=== PATIENT | female | born 1935 | race Caucasian/White ===

== ENCOUNTER 2021-10-06 10:44 | Inpatient (IN) | payer MEDICARE, BC ==
[~2021-10-06] VITALS: Ht 154.9 cm; Wt 78.1 kg
[2021-10-06 11:17] LABS: BASO # 0.1 K/mm3 (0.0-0.2); BASO % 0.9 % (0.0-2.0); EOS # 0.2 K/mm3 (0.0-0.7); EOS % 1.9 % (0.0-4.0); GRAN # 5.6 K/mm3 (1.4-6.5); GRAN % 47.8 % (42.2-75.2); HEMATOCRIT 41.5 % (37.0-47.0); HEMOGLOBIN 14.1 g/dl (12.5-16.0); LYMPH # 4.8 K/mm3 (1.2-3.4); LYMPH % 40.7 % (20.0-51.0); MEAN CELL VOLUME 89 fl (80.0-100.0); MEAN CORPUSCULAR HEMOGLOBIN 30 pg (27-31); MEAN CORPUSCULAR HGB CONC 34 g/dl (33.0-37.0); MEAN PLATELET VOLUME 11.1 fl (7.4-10.4); MONO % 8.5 % (1.7-9.3); PLATELET COUNT 204 K/mm3 (130-400); RED BLOOD COUNT 4.67 M/mm3 (4.10-5.30); REDCELL DISTRIBUTION WIDTH-CV 12.4 % (11.5-14.5)
[2021-10-06 11:31] LABS: ALBUMIN 3.7 gm/dL (3.4-4.8); BILIRUBIN,TOTAL 0.8 mg/dL (0.2-1.2); CALCIUM 9.8 mg/dL (8.4-10.2); CREATININE, serum 1.32 mg/dL (0.57-1.11); POTASSIUM 4.3 mmol/L (3.5-4.5); TOTAL PROTEIN 7.5 gm/dL (6.2-8.1)
[2021-10-06 11:51] LABS: TROPONIN-I 0.025 ng/mL (0.00-0.033); TSH w REFLEX 2.432 uIU/mL (0.350-4.940)
[2021-10-06 12:49] LABS: COLLECTION METHOD CLEAN CATCH
[2021-10-06 12:55] LABS: MUCOUS Present (NOT PRESENT); PH 6 (5-8); SQUAMOUS EPITHELIAL 0-2 /hpf (0-10); URINE APPEARANCE Clear (CLEAR/HAZY); URINE BACTERIA None Seen /hpf (NONE SEEN); URINE BILIRUBIN Negative (NEGATIVE); URINE BLOOD Negative (NEGATIVE); URINE COLOR Yellow (YELLOW); URINE GLUCOSE Negative (NEGATIVE); URINE KETONE Negative (NEGATIVE); URINE LEUKOCYTE ESTERASE Negative (NEGATIVE); URINE NITRATE Negative (NEGATIVE); URINE PROTEIN(semi-quant) Negative (NEGATIVE); URINE RBC 0-2 /hpf (0-2); URINE UROBILINOGEN Negative (NEGATIVE)
[2021-10-06] MEDS ORDERED: PRINZIDE 12.5 M1 TA1 PO (13:22)
[2021-10-06] MEDS ORDERED: [UNRECOGNIZED DRUG - SUPPLY] (13:22)
[2021-10-06] MEDS ORDERED: ZOCOR 40MG40 MG PO (13:22)
[2021-10-06] MEDS ORDERED: TOPROL XL100 MG PO (13:23)
[2021-10-06] MEDS ORDERED: NOVOLIN 70/30 710 ML SQ (13:23)
[2021-10-06] MEDS ORDERED: OMEGA-3 1000 MG1 CAP PO (13:44)
[2021-10-06] MEDS ORDERED: MULTI VITAMINS1 TAB PO (13:44)
--- NOTE | 2021-10-07 00:16 | NUR ---
Patient arrived medical floor room 312 via hospital bed from ER at 23:10 pm. Patient able to get up from bed and move to bed with x1 assit. Patient alert and oriented to self only. Patient not oriented to time, month, year, place and situation. Noticed left sided facial droop and slurred speech. Patient follow some commands. Bilateral hands and legs equal strengh. NS currently running at 75ml/hr. Patient currently NPO until ev. Patient denies any pain or discomfort. Breathing even and unlabored on room air. No apparent distress noted. Oriented patient to the room. Called patient's daughter Rosi at midnight and updated on patient's condition. Unable to verify med req at this time due to patient's daughter does not remember medications patient currently taking. Per patient's daughter, she gave medication lists to ER staff earlier. Patient's daughter also reports that patient blood sugar tends to drop dramatically and will need monitor closely. Updated CRISTY Mehta about family concerns. Q4hr glucose monitor in place and hypoglycemic protocol entered in DEC by CRISTY Mehta. Call light in reach. Bed alarms on. Will closely monitor.
[2021-10-07 00:52] VITALS: BP 155/98; PULSE 67; TEMP 97.6
--- NOTE | 2021-10-07 01:02 | NUR ---
Patient's BS 311 at 00:51 am. Updated CRISTY Mehta. Per CRISTY Mehta, it's ok to hold insulin at this time since patient NPO and also family expressed concerns about patient's BS will drop quickly. Will closely monitor.
[2021-10-07 04:52] VITALS: BP 157/64; PULSE 73; TEMP 97.5
--- NOTE | 2021-10-07 05:33 | NUR ---
Patient got up to use bed side commode x2 over the night. Patient awake early around 3 am. Patient moving around in bed and trying to get out of bed. Patient calling out and saying, "please, please, help me, I have go see my parents.". Re-oriented patient frequently. Bed alarms on. Fall precaution maintained.
[2021-10-07 06:41] LABS: BASO # 0.1 K/mm3 (0.0-0.2); EOS # 0.1 K/mm3 (0.0-0.7); EOS % 1.1 % (0.0-4.0); GRAN # 6.9 K/mm3 (1.4-6.5); GRAN % 55.6 % (42.2-75.2); HEMATOCRIT 39.8 % (37.0-47.0); HEMOGLOBIN 13.2 g/dl (12.5-16.0); LYMPH # 4.1 K/mm3 (1.2-3.4); LYMPH % 32.9 % (20.0-51.0); MEAN CELL VOLUME 90 fl (80.0-100.0); MEAN CORPUSCULAR HEMOGLOBIN 30 pg (27-31); MEAN CORPUSCULAR HGB CONC 33 g/dl (33.0-37.0); MEAN PLATELET VOLUME 12.3 fl (7.4-10.4); MONO # 1.1 K/mm3 (0.1-0.6); MONO % 9.2 % (1.7-9.3); PLATELET COUNT 210 K/mm3 (130-400); RED BLOOD COUNT 4.44 M/mm3 (4.10-5.30); REDCELL DISTRIBUTION WIDTH-CV 12.5 % (11.5-14.5)
[2021-10-07 06:54] LABS: ALBUMIN 3.6 gm/dL (3.4-4.8); BILIRUBIN,TOTAL 0.9 mg/dL (0.2-1.2); CALCIUM 9.6 mg/dL (8.4-10.2); CHOLESTEROL RISK RATIO 4.2; CREATININE, serum 1.4 mg/dL (0.57-1.11); POTASSIUM 4.2 mmol/L (3.5-4.5); TOTAL PROTEIN 7.1 gm/dL (6.2-8.1)
[2021-10-07 08:00] VITALS: BP 154/69; BP 160/121; PULSE 89; TEMP 97.8
--- NOTE | 2021-10-07 08:30 | NUR ---
Pt assessment complete. Pt is laying in bed upon entry, she is alert but unable to answer orientation questions beyond self orientation. Pt continues to say her parents are coming to pick her up, she does not answer other questions but will follow commands. She was able to get up with one assist to the cammode, difficult to follow instructions. Awaiting ST to evaluate patient prior to oral intake. Bed alarm in place.
--- NOTE | 2021-10-07 09:56 | NUR ---
The patient has a past medical history of dementia and was sleeping this morning. RACHEL contacted the patient's , Miguel Angel (ph#[phone]), to discuss discharge plan. The patient lives with her [place] of [place]. Miguel Angel reports that the patient was independent with ADLs before being hospitalized and that she has a walker. The patient's PCP is Dr. Tyson Olmos and she receives her medications through the mail from [facility]. The patient does not have a DPOA-HC in EMR, but Miguel Angel reports that the patient does have one completed and that she designated him. He reports that the forms are at home. Their daughter, Rosi Mosquera (ph#[phone]), lives in [place]. The patient was admitted for concern of a stroke. RACHEL discussed the option of post-acute rehab upon discharge. Miguel Angel reports that he would be hopeful they could do home health, if able. PT/OT/ST have been ordered. Awaiting screens. *Discharge plan: home health vs SNF. Will await therapy's recs*
[2021-10-07 11:53] VITALS: BP 155/75; PULSE 86; TEMP 98.1
--- NOTE | 2021-10-07 14:30 | NUR ---
PT notified RACHEL that they would recommend post-acute rehab for the patient upon discharge. The patient's , Miguel Angel, arrived to the hospital. SW met with Miguel Angel to update him on the above. Miguel Angel reports that him and their family have discussed options and they do not want the patient going to a SNF, due to the rise in COVID. Miguel Angel reports that between him and their children, they can take care of the patient and that they would hope to get home health. SW informed him how we can get home health set up, but insurance only pays for prison/therapy in the home 2-3 times a week at an hour at a time. SW informed him that it they are looking for companions to assist, this would be private pay. Miguel Angel verbalized understanding. Miguel Angel reports that he will get back to his family with this information and see what they want to do. He reports that he will let RACHEL know tomorrow. SW provided Miguel Angel with this RACHEL's phone number and Medicare.gov's list of SNF's and home health agencies for the [facility]. SW to continue to follow. *Discharge plan: home with family support and home health vs SNF*
[2021-10-07 16:14] LABS: CREATININE, serum 1.26 mg/dL (0.57-1.11)
[2021-10-07 16:30] LABS: FRACTIONAL EXCRETION OF NA+ 0.63 %
[2021-10-07 16:54] VITALS: BP 142/87; PULSE 78; TEMP 98.4
--- NOTE | 2021-10-07 18:22 | NUR ---
Pt confused through the day, answers a few questions appropriately. Hard for patient to follow directions. Continues to have the L sided facial droop, hand safe deposit attendant and BLE equal. IVF infusing. Pt tolerated pureed diet and nectar thick liquids without issues. Fall precautions in place.
--- NOTE | 2021-10-07 19:29 | NUR ---
AT SHIFT REPORT THE PATIENT WAS RESTING IN BED COMFORTABLY. AT 1910, THIS RN WENT TO CHECK ON THE PATIENT, AND THE PATIENT HAD PULLED HER IV OUT, THE COBAN ON THE ARM ACTED A TOURNIQUETTE. THE PATIENT LOST A SIGNIFICANT AMOUNT OF BLOOD. THE BLOOD WAS POOLED IN THE BED, AND POOLED ON THE FLOOR. THE GOWN WAS SATURATED AND THE BEDDING WAS ALSO SATURATED. CONTACTED MELANY MANZO TO NOTIFY HER OF THE BLOOD LOSS AND POTENTIAL H&H DROP THAT COULD RESULT FROM THE BLOOD LOSS. THE PATIENT WAS NOT NEEDING ANYTHING ELSE AT THIS TIME.
[2021-10-07 20:53] VITALS: BP 149/74; PULSE 105; TEMP 99.6
[2021-10-08 00:57] VITALS: BP 134/98; PULSE 108; TEMP 98.8
[2021-10-08 07:10] LABS: CALCIUM 9.6 mg/dL (8.4-10.2); CREATININE, serum 1.24 mg/dL (0.57-1.11); HEMOGLOBIN 12.1 g/dl (12.5-16.0); MEAN CELL VOLUME 90 fl (80.0-100.0); MEAN CORPUSCULAR HEMOGLOBIN 30 pg (27-31); MEAN CORPUSCULAR HGB CONC 33 g/dl (33.0-37.0); MEAN PLATELET VOLUME 11.8 fl (7.4-10.4); PLATELET COUNT 177 K/mm3 (130-400); POTASSIUM 4.2 mmol/L (3.5-4.5); RED BLOOD COUNT 4.04 M/mm3 (4.10-5.30); REDCELL DISTRIBUTION WIDTH-CV 12.5 % (11.5-14.5)
[2021-10-08 07:13] LABS: HEMATOCRIT 36.2 % (37.0-47.0)
[2021-10-08 07:27] VITALS: BP 150/74; PULSE 120; TEMP 99.2
[2021-10-08 07:43] LABS: BAND 3 % (0-10); LYMPHOCYTE 27 % (20.0-51.0); NEUTROPHILS 66 % (42.0-75.2); PLATELET ESTIMATE NORMAL (NORMAL)
--- NOTE | 2021-10-08 10:07 | NUR ---
Patient confused and very restless in bed. Contantly moving, pulling at her gown, and attempting to remove her kavita that was placed to keep her from pulling out her new IV. 22G was started in the right forearm by Maxx from landscape laborer. Patient is not responding to questions appropriately. This RN and PCT did a complete bed change on the patient.
[2021-10-08 11:47] VITALS: BP 148/66; PULSE 85; TEMP 99
[2021-10-08] MEDS ORDERED: LIPITOR20 MG PO ×2 (14:55)
[2021-10-08] MEDS ORDERED: ASPIRIN 81M81 MG/TA2 PO ×2 (14:56)
--- NOTE | 2021-10-08 15:02 | NUR ---
Patient remains confused, but this is apparently her baseline. This RN and the PCT got the patient up to the bedside commode, she was unsteady and required a heavy 2x assist.
[2021-10-08 15:25] VITALS: BP 153/78; PULSE 98; TEMP 100.3
--- NOTE | 2021-10-08 15:50 | NUR ---
RACHEL received a voicemail from the patient's daughter, Rosi Mosquera. RACHEL returned Rosi's phone call. Rosi had some questions about the information this RACEHL provided to her father yesterday. Rosi also reports that after more consideration, the patient's and the rest of the family have decided to pursue with the patient returning home with her . Rosi reports that they are concerned with the patient being exposed to COVID while at a facility. RACHEL informed Rosi how the clinical team and therapy are recommending post-acute rehab and that she is not safe to return home. RACHEL read PT's eval of the patient and how the patient was needing maximum assistance to get up, has unsteady gait and weakness, and was needing mod-max cues for directions. Rosi verbalized understanding. Rosi inquired that if they take her home with home health and realize they cannot take care of her, would SNF still be covered by insurance. RACHEL informed Rosi how they would have a 30 day window with Medicare. RACHEL informed them that Medicare only pays for PT/OT/ST/SN in the home and they only come out 2-3 times a week, at an hour at a time. RACHEL informed her that any burial needs salesperson services would be private pay. Rosi verbalized understanding. Rosi reports that they would prefer to take her home with home health. She asked that RACHEL email her a list of the home health agencies and a list of private duty caregivers. RACHEL emailed her those lists. RACHEL updated the clinical team. RACHEL then attended clinical rounds. The patient's was at bedside. Rosi was on speaker phone. The hospitalist informed the and Rosi that the patient will discharge tomorrow with home health. RACHEL then contacted Rosi to follow up on home health preference. Rosi reports that her dad, the patient's (Miguel Angel) has decided to pursue SNF now. Rosi reports that they prefer 1) [facility] 2) [facility]. RACHEL contacted and faxed a referral to both facilities. Awaiting screens.
[2021-10-08 21:44] VITALS: BP 157/89; PULSE 79; TEMP 99
[2021-10-08 23:46] VITALS: BP 153/93; PULSE 100; TEMP 99.2
--- NOTE | 2021-10-09 00:04 | NUR ---
Patient assessed around 1950. Alert, oriented to self. Denies pain and discomfort, and no s/sx of pain or discomfort noted at this time. Peripheral IV to right forearm with fluids running per orders. continues on IV ABX as well. Voices no questions, needs, or concerns at this time. In bed with call light within reach.
[2021-10-09 03:08] VITALS: BP 174/81; PULSE 90; TEMP 98.3
--- NOTE | 2021-10-09 05:41 | NUR ---
Patient has been resting in bed with call light within reach. No aggitation noted this shift. Continues on IV fluids per orders. Bed alarm on.
[2021-10-09 06:43] LABS: HEMOGLOBIN 11.8 g/dl (12.5-16.0); MEAN CELL VOLUME 91 fl (80.0-100.0); MEAN CORPUSCULAR HEMOGLOBIN 30 pg (27-31); MEAN CORPUSCULAR HGB CONC 33 g/dl (33.0-37.0); MEAN PLATELET VOLUME 12.1 fl (7.4-10.4); PLATELET COUNT 175 K/mm3 (130-400); REDCELL DISTRIBUTION WIDTH-CV 12.9 % (11.5-14.5)
[2021-10-09 06:46] LABS: HEMATOCRIT 35.4 % (37.0-47.0)
[2021-10-09 07:00] LABS: CALCIUM 9.6 mg/dL (8.4-10.2); CREATININE, serum 1.13 mg/dL (0.57-1.11); POTASSIUM 3.6 mmol/L (3.5-4.5)
[2021-10-09 07:19] VITALS: BP 136/80; PULSE 95; TEMP 97.7
--- NOTE | 2021-10-09 07:54 | NUR ---
PT ASSESSED. NO COMPLAINTS OF PAIN OR DYSPNEA. DAUGHTER CALLED FOR AN UPDATE AND QUESTIONS ANSWERED. NO OTHER CONCERNS AT THIS TIME CALL LIGHT WITHIN REACH
[2021-10-09 07:55] LABS: BAND 7 % (0-10); LYMPHOCYTE 12 % (20.0-51.0); NEUTROPHILS 74 % (42.0-75.2); PLATELET ESTIMATE NORMAL (NORMAL)
[2021-10-09 11:45] VITALS: BP 164/92; PULSE 91; TEMP 97.4
[2021-10-09 13:20] LABS: CALCIUM 9.3 mg/dL (8.4-10.2); CREATININE, serum 1.34 mg/dL (0.57-1.11); POTASSIUM 3.9 mmol/L (3.5-4.5)
[2021-10-09 15:18] VITALS: BP 153/58; PULSE 86; TEMP 98.4
--- NOTE | 2021-10-09 15:47 | NUR ---
Sofie, at [facility], reports that once the patient is stable off the IV psych meds and not having behaviors, they could look at taking the patient. Katherine, at [facility], reports that they can accept the patient on Tuesday. RACHEL attended clinical rounds. The hospitalist notified SW that the patient may be able to discharge over the weekend. RACHEL met with the patient's , Miguel Angel, to update on referrals and how if the patient is able to discharge over the weekend and [facility]'s is able to take, then we would have to look at the patient going to [facility]. Miguel Angel verbalized understanding. He expressed how they know people at [facility], it's closer, and they would really prefer it. RACHEL then received a phone call from the patient's daughter, Rosi. Rosi reports that they do not want [facility] as a second preference now. She reports that the whole family is on board for [facility]. She expressed her concerns that therapy is not working with her here. RACHEL informed her how therapy has been ordered and PT/OT both attempted several times to work with her today, but the patient was difficult to wake and keep awake. Rosi reports that we need to be more persistent. RACHEL provided support and updated the patient's RN. RACHEL staffed with the PA. The patient is on IV antibiotics and will likely be here through the weekend. RACHEL updated the patient's daughter, Rosi. Rosi was thankful for the update.
[2021-10-09 21:00] VITALS: BP 142/53; PULSE 117; TEMP 99.4
[2021-10-09 23:25] VITALS: BP 158/78; PULSE 116; TEMP 98.7
--- NOTE | 2021-10-09 23:29 | NUR ---
Patient assessed around 1934. Started IV fluids to peripheral IV to left hand per orders. Started new ABX per orders. Patient alert but not answering questions. No outward s/sx of pain or discomfort noted. In bed with call light within reach. Bed alarm on.
[2021-10-10 03:05] VITALS: BP 147/66; PULSE 103; TEMP 101
--- NOTE | 2021-10-10 04:37 | NUR ---
During the night, patient's HR noted to be in the 110s. Called and updated CRISTY Mehta, and EKG obtained and Telemetry monitoring put in place. Telemetry called and resported HR was 130s sustained, sinus rhythm. Checked on patient. Respirations noted to be 32, oxygen 90% on room air, Temp 101. Stopped fluids. Put on oxygen at 2 L/min via NC, increaed to 96%, and decreased oxygen to 1 L/min via NC. Currently sating at 98%, but continues to have tachypnia, so oxygen left on for comfort. Called and updated CRISTY Mehta. New orders recieved, and nasal swab performed and sent to lab to check for viral infections. CXR obtained as well. Blood sugar checked with a result of 149. Awaiting results of nasal swab at this time. Given Acetaminophen suppository. In bed with bed alarm on. Call light within reach.
--- NOTE | 2021-10-10 05:17 | NUR ---
Respiratary panel negative for influenza A & B, Covid-19, and RSV. Updated CRISTY Mehta. Continue to hold IV fluids.
[2021-10-10 07:11] LABS: BASO # 0.1 K/mm3 (0.0-0.2); BASO % 0.6 % (0.0-2.0); EOS # 0.1 K/mm3 (0.0-0.7); EOS % 0.6 % (0.0-4.0); GRAN # 12.7 K/mm3 (1.4-6.5); GRAN % 77.6 % (42.2-75.2); HEMOGLOBIN 10.7 g/dl (12.5-16.0); LYMPH # 1.9 K/mm3 (1.2-3.4); LYMPH % 11.5 % (20.0-51.0); MEAN CELL VOLUME 89 fl (80.0-100.0); MEAN CORPUSCULAR HEMOGLOBIN 30 pg (27-31); MEAN CORPUSCULAR HGB CONC 33 g/dl (33.0-37.0); MEAN PLATELET VOLUME 12.2 fl (7.4-10.4); MONO # 1.5 K/mm3 (0.1-0.6); MONO % 9.1 % (1.7-9.3); PLATELET COUNT 151 K/mm3 (130-400); RED BLOOD COUNT 3.61 M/mm3 (4.10-5.30)
[2021-10-10 07:23] LABS: HEMATOCRIT 32.1 % (37.0-47.0)
[2021-10-10 07:27] VITALS: BP 154/101; PULSE 92; TEMP 97.6
[2021-10-10 07:31] LABS: CALCIUM 9.5 mg/dL (8.4-10.2); CREATININE, serum 1.09 mg/dL (0.57-1.11); POTASSIUM 3.3 mmol/L (3.5-4.5)
[2021-10-10 10:58] VITALS: BP 139/98; PULSE 83; TEMP 98.8
[2021-10-10 13:25] LABS: CALCIUM 9.7 mg/dL (8.4-10.2); CREATININE, serum 1.22 mg/dL (0.57-1.11); POTASSIUM 4.2 mmol/L (3.5-4.5)
[2021-10-10 15:01] LABS: COLLECTION METHOD CLEAN CATCH
[2021-10-10 15:12] LABS: PH 5 (5-8); URINE APPEARANCE Hazy (CLEAR/HAZY); URINE BACTERIA None Seen /hpf (NONE SEEN); URINE BILIRUBIN Negative (NEGATIVE); URINE BLOOD Negative (NEGATIVE); URINE COLOR Yellow (YELLOW); URINE GLUCOSE 3+ (NEGATIVE); URINE KETONE Trace (NEGATIVE); URINE LEUKOCYTE ESTERASE 2+ (NEGATIVE); URINE NITRATE Negative (NEGATIVE); URINE PROTEIN(semi-quant) 2+ (NEGATIVE); URINE RBC 0-2 /hpf (0-2)
[2021-10-10 17:20] VITALS: BP 145/57; PULSE 71; TEMP 98.6
--- NOTE | 2021-10-10 18:57 | NUR ---
PT ASSISTED TO CHAIR X2 ASSIST WITH GB PT TOLARATED WELL. PT DAUGHTERS UPDATED ON CPOC
--- NOTE | 2021-10-10 18:58 | NUR ---
PT PROVIDED EDUCATION REGARDING NECTOR THICK LIQUIDS. PT VERBALIZED UNDERSTANDING
[2021-10-10 19:21] VITALS: BP 143/68; PULSE 74; TEMP 100.2
--- NOTE | 2021-10-10 23:47 | NUR ---
Patient assessed around 193. Patient answering some questions at that time. Denies pain and discomfort. Peripheral IV to left wrist with fluids running per orders. Was on oxygen at 2 L/min via OM 97%. Decreaed to 1 L/min via OM, 96%. Put on room air, 93%. LS CTA in upper lobes, diminished in lower. In bed with call light within reach. Bed alarm on.
[2021-10-11] VITALS (7 sets, daily range): BP systolic 155–187; BP diastolic 47–92; PULSE 64–86; TEMP 97.9–99.8
--- NOTE | 2021-10-11 06:07 | NUR ---
Patient had fever once this shift and given PRN APAP, which was effective. IV to left wrist came out, and new one started to right AC. IV fluids continue per orders. In bed with call light within reach. Bed alarm on.
[2021-10-11 08:06] LABS: BASO # 0.1 K/mm3 (0.0-0.2); BASO % 0.7 % (0.0-2.0); EOS # 0.5 K/mm3 (0.0-0.7); EOS % 4.1 % (0.0-4.0); GRAN # 7.6 K/mm3 (1.4-6.5); GRAN % 62.5 % (42.2-75.2); HEMOGLOBIN 11.3 g/dl (12.5-16.0); LYMPH # 2.9 K/mm3 (1.2-3.4); LYMPH % 23.6 % (20.0-51.0); MEAN CELL VOLUME 90 fl (80.0-100.0); MEAN CORPUSCULAR HEMOGLOBIN 30 pg (27-31); MEAN CORPUSCULAR HGB CONC 33 g/dl (33.0-37.0); MEAN PLATELET VOLUME 11.6 fl (7.4-10.4); MONO # 1.1 K/mm3 (0.1-0.6); MONO % 8.6 % (1.7-9.3); PLATELET COUNT 174 K/mm3 (130-400); REDCELL DISTRIBUTION WIDTH-CV 13.2 % (11.5-14.5)
[2021-10-11 08:19] LABS: HEMATOCRIT 34.1 % (37.0-47.0)
[2021-10-11 08:37] LABS: CALCIUM 9.4 mg/dL (8.4-10.2); POTASSIUM 3.4 mmol/L (3.5-4.5)
--- NOTE | 2021-10-11 18:06 | NUR ---
Patient sat in the recliner for a little bit today and tolerated it well. Patient is a heavy 1x assist. Potassium replaced. Patient assisted to bedside commode multiple times.
[2021-10-12 04:00] VITALS: BP 165/76; PULSE 75; TEMP 99.2
--- NOTE | 2021-10-12 04:54 | NUR ---
PT HAS REMAINED WITH LOW GRADE FEVER DESPITE MECHANICAL INTERVENTIONS. THIS NURSE WILL ADMINISTER TYLENOL AND F/U. BS WNL.
--- NOTE | 2021-10-12 05:46 | NUR ---
PT NOTED TO HAVE LOW GRADE FEVER THIS NIGHT, TYLENOL ADMINISERED PT'S TEMPERATURE CONTINUED TO RISE DESPITE MECHANICAL INTERVENTIONS. BS WNL THIS MORNING. INSULIN ADMINISTERED THROUGH OUT THIS SHIFT. SEE EMAR. PT WELL UNDER RA. PT CHANGED, BED LINENS CHANGED. ALL NEEDS MET THIS NIGHT. CALL LIGHT WITHIN REACH.
[2021-10-12 06:53] LABS: BASO % 0.4 % (0.0-2.0); EOS # 0.5 K/mm3 (0.0-0.7); EOS % 4.6 % (0.0-4.0); GRAN # 6.6 K/mm3 (1.4-6.5); GRAN % 58.5 % (42.2-75.2); HEMOGLOBIN 11.2 g/dl (12.5-16.0); LYMPH % 26.4 % (20.0-51.0); MEAN CELL VOLUME 90 fl (80.0-100.0); MEAN CORPUSCULAR HEMOGLOBIN 30 pg (27-31); MEAN CORPUSCULAR HGB CONC 33 g/dl (33.0-37.0); MONO # 1.1 K/mm3 (0.1-0.6); MONO % 9.7 % (1.7-9.3); PLATELET COUNT 196 K/mm3 (130-400); RED BLOOD COUNT 3.74 M/mm3 (4.10-5.30); REDCELL DISTRIBUTION WIDTH-CV 13.2 % (11.5-14.5)
[2021-10-12 06:54] LABS: HEMATOCRIT 33.7 % (37.0-47.0)
[2021-10-12 08:25] LABS: CALCIUM 9.2 mg/dL (8.4-10.2); CREATININE, serum 0.99 mg/dL (0.57-1.11); MAGNESIUM 2.2 mg/dL (1.6-2.6); POTASSIUM 3.9 mmol/L (3.5-4.5)
[2021-10-12 08:35] VITALS: BP 165/91; PULSE 76; TEMP 97.5
--- NOTE | 2021-10-12 10:24 | NUR ---
Patient sitting up in the recliner upon entering the room, daughter is at the bedside. Patient more alert today, able to eat and drink on her own. 40 units of 70/30 held this morning d/t BS being 89. Maite was called and she instructed this RN to hold the medication until Dr. Fishman can assess the situation.
[2021-10-12] MEDS ORDERED: NORVASC 5MG5 MG/TAB PO (11:00)
[2021-10-12] MEDS ORDERED: ASPIRIN E.C. 8181 MG PO (11:00)
[2021-10-12] MEDS ORDERED: LIPITOR 40MG TA40 MG PO (11:00)
--- NOTE | 2021-10-12 11:09 | NUR ---
The hospitalist notified RACHEL that he is ready to discharge the patient today. RACHEL notified Katherine at [facility]. Katherine reports that they are all good with taking the patient today and they have set up transportation for 1300. RACHEL notified the clinical team. RACHEL met with the patient and her daughter, Mali, and updated Mali on the above. Mali is in agreement to the plan. RACHEL then contacted and updated the patient's , Miguel Angel. Miguel Angel is in agreement to the plan. RACHEL read the IM form outloud to Don over the phone. Miguel Angel verbalized understanding and gave SW approval to sign the form on his behalf. RACHEL provided a copy to the patient's daughter, Mali. The patient is to discharge today, 10/12, to [facility] for a skilled stay. Transportation was scheduled at 1300, via [facility]. RACHEL informed the patient's , their daugher, and the RN of the time. No additional needs at this time.
[2021-10-12 12:00] VITALS: BP 165/58; PULSE 64; TEMP 98.4
--- NOTE | 2021-10-12 12:02 | NUR ---
First visit from the registered account administrator. No needs right now.
--- NOTE | 2021-10-12 14:08 | NUR ---
Patient discharged at approx. 1315. [facility] picked the patient up, and daughter was present. There were no complaints/concerns at the time of discharge.
== END 2021-10-12 13:15 | DRG 69 ==
LOC: COL.ER 10:44 → MEDICAL 15:17
PROVIDERS: Emergency Medicine; Physician Assistant; ADMIT Internal Medicine
DX: G45.9 Transient cerebral ischemic attack, unspecified (principal); J96.01 Acute respiratory failure with hypoxia; J69.0 Pneumonitis due to inhalation of food and vomit; N17.9 Acute kidney failure, unspecified; G93.49 Other encephalopathy; E87.0 Hyperosmolality and hypernatremia; N39.0 Urinary tract infection, site not specified; R29.810 Facial weakness; I10 Essential (primary) hypertension; E78.5 Hyperlipidemia, unspecified; E87.6 Hypokalemia; E11.649 Type 2 diabetes mellitus with hypoglycemia without coma; E87.70 Fluid overload, unspecified; G31.9 Degenerative disease of nervous system, unspecified; F02.80 Dementia in other diseases classified elsewhere, unspecified severity, without behavioral disturbance, psychotic disturbance, mood disturbance, and anxiety; Z20.822 Contact with and (suspected) exposure to COVID-19; Z79.4 Long term (current) use of insulin; R47.1 Dysarthria and anarthria
CPT/HCPCS: 99223-AI; 99232-AI; 99233-AI; 99239; A9284; J0696; J1630; J1644; J1815; J2060; J2543; J3370; J3480; J7030; J7050; J7070; Q9967

== ENCOUNTER 2023-07-14 15:21 | Inpatient (IN) | payer MEDICARE, BC ==
[~2023-07-14] VITALS: Ht 157.5 cm; Wt 59.2 kg
[~2023-07-14 15:21] MED LIST: ASPIRIN 81M81 MG/TA2 PO; ASPIRIN E.C. 8181 MG PO; LIPITOR 40MG TA40 MG PO; LIPITOR20 MG PO; MULTI VITAMINS1 TAB PO; NORVASC 5MG5 MG/TAB PO; NOVOLIN 70/30 710 ML SQ; OMEGA-3 1000 MG1 CAP PO; PRINZIDE 12.5 M1 TA1 PO; TOPROL XL100 MG PO; ZOCOR 40MG40 MG PO; [UNRECOGNIZED DRUG - SUPPLY]
[2023-07-14 15:59] LABS: BASO # 0.1 K/mm3 (0.0-0.2); BASO % 0.8 % (0.0-2.0); EOS # 0.2 K/mm3 (0.0-0.7); EOS % 1.7 % (0.0-4.0); GRAN # 5.1 K/mm3 (1.4-6.5); GRAN % 51.3 % (42.2-75.2); HEMATOCRIT 39.4 % (37.0-47.0); HEMOGLOBIN 12.9 g/dl (12.5-16.0); LYMPH # 3.4 K/mm3 (1.2-3.4); LYMPH % 34.6 % (20.0-51.0); MEAN CELL VOLUME 93 fl (80.0-100.0); MEAN CORPUSCULAR HEMOGLOBIN 30 pg (27-31); MEAN CORPUSCULAR HGB CONC 33 g/dl (33.0-37.0); MEAN PLATELET VOLUME 11.5 fl (7.4-10.4); MONO # 1.1 K/mm3 (0.1-0.6); MONO % 11.4 % (1.7-9.3); PLATELET COUNT 233 K/mm3 (130-400); RED BLOOD COUNT 4.25 M/mm3 (4.10-5.30); REDCELL DISTRIBUTION WIDTH-CV 12.8 % (11.5-14.5)
[2023-07-14 16:07] LABS: ALBUMIN 3.5 gm/dL (3.4-4.8); BILIRUBIN,TOTAL 0.6 mg/dL (0.2-1.2); CALCIUM 10.2 mg/dL (8.4-10.2); CREATININE, serum 1.28 mg/dL (0.57-1.11); POTASSIUM 4.1 mmol/L (3.5-4.5); TOTAL PROTEIN 7.4 gm/dL (6.2-8.1)
[2023-07-14 16:38] LABS: COLLECTION METHOD CATHETER
[2023-07-14 16:45] LABS: URINE APPEARANCE Cloudy (CLEAR/HAZY); URINE BLOOD Negative (NEGATIVE); URINE COLOR OTHER (YELLOW); URINE GLUCOSE Negative (NEGATIVE); URINE KETONE TRACE (NEGATIVE); URINE NITRATE Negative (NEGATIVE); URINE PROTEIN(semi-quant) Negative (NEGATIVE)
[2023-07-14 16:50] LABS: SQUAMOUS EPITHELIAL 0-2 /hpf (0-10); URINE RBC 0-2 /hpf (0-2); URINE UROBILINOGEN 0.2 E.U/dL (0.2-1.0)
[2023-07-14] MEDS ORDERED: SEROQUEL 2525 MG/TAB PO (18:32)
[2023-07-14] MEDS ORDERED: DEXCOM G6 SENS1 EACH MC (18:32)
[2023-07-14] MEDS ORDERED: TOPROL XL100 MG PO (18:33)
[2023-07-14] MEDS ORDERED: NOVOLOG MIX 70/10 ML SQ (18:34)
[2023-07-14] MEDS ORDERED: PRINZIDE 12.5 M1 TA1 PO (18:34)
[2023-07-14] MEDS ORDERED: EXELON9.5 MG/24 TD (18:35)
[2023-07-14] MEDS ORDERED: ALL DAY ALLERGY10 M3 PO (18:35)
[2023-07-14] MEDS ORDERED: ASPIRIN 81M81 MG/TA2 PO (18:36)
[2023-07-14] MEDS ORDERED: LIPITOR 40MG TA40 MG PO (18:36)
[2023-07-14] MEDS ORDERED: PLAVIX 75MG TAB75 MG PO (18:36)
[2023-07-14 20:05] VITALS: BP 187/77; PULSE 66; TEMP 98
[2023-07-14] MEDS ORDERED: XALATAN EYE DROPS OU (20:40)
--- NOTE | 2023-07-14 22:27 | NUR ---
PT BP 187/77. SPOKE WITH CRISTY RAHMAN. NO NEW ORDERS. LACEY WOULD LIKE US TO MONITOR BP THROUGH THE NIGHT. CALL LIGHT IN PLACE. ALL NEEDS MET AT THIS TIME.
[2023-07-14 23:20] VITALS: BP 149/69; PULSE 61; TEMP 98.3
[2023-07-15] VITALS (12 sets, daily range): BP systolic 111–181; BP diastolic 51–88; PULSE 64–96; TEMP 97.5–98.7
--- NOTE | 2023-07-15 07:00 | NUR ---
PT RESTING IN BED. IVF RUNNING. PT IS RA AND NON TELE. CALL LIGHT WITHIN REACH AND BED ALARM ACTIVE. 0815-PT DOES NOT OPEN EYES TO VOICE OR PAIN. PT DOES NOT FOLLOW COMMANDS. PT DOES MOVE EXTREMETIES. PUPILS RESPONSIVE. SPOKE WITH Joyce SCHAEFER REGARDING ABOVE.
[2023-07-15 09:09] LABS: BASO # 0.1 K/mm3 (0.0-0.2); BASO % 0.7 % (0.0-2.0); EOS # 0.3 K/mm3 (0.0-0.7); EOS % 3.4 % (0.0-4.0); HEMOGLOBIN 11.9 g/dl (12.5-16.0); LYMPH # 3.3 K/mm3 (1.2-3.4); LYMPH % 34.2 % (20.0-51.0); MEAN CELL VOLUME 93 fl (80.0-100.0); MEAN CORPUSCULAR HEMOGLOBIN 30 pg (27-31); MEAN CORPUSCULAR HGB CONC 33 g/dl (33.0-37.0); MEAN PLATELET VOLUME 11.6 fl (7.4-10.4); MONO % 10.4 % (1.7-9.3); PLATELET COUNT 169 K/mm3 (130-400); RED BLOOD COUNT 3.93 M/mm3 (4.10-5.30); REDCELL DISTRIBUTION WIDTH-CV 12.6 % (11.5-14.5)
[2023-07-15 09:20] LABS: CALCIUM 9.2 mg/dL (8.4-10.2); CREATININE, serum 0.97 mg/dL (0.57-1.11); HEMATOCRIT 36.5 % (37.0-47.0); POTASSIUM 4.1 mmol/L (3.5-4.5)
[2023-07-15] MEDS ORDERED: EXELON9.5 MG/24 TD (09:42)
[2023-07-15] MEDS ORDERED: MIRALAX119G PO (09:45)
--- NOTE | 2023-07-15 12:45 | NUR ---
child care worker met with patient, Rosi (daughter), Deng (patient's ) and Dr. Ibrahim. Rosi expressed prior to the hospitalization patient was able to ambulate on her own but she was slowing down and she needed assistance with being fed. Rosi reports patient received diagnosis of Parkinsons and Dementia a few years ago and they were starting the discussion of Hospice care with patient's primary care recently. Family is open to discussion about those services at home. child care worker discussed discharge planning with patient and her family at bedside, this included Rosi (daughter) and Deng (patient's ). Deng reports his home phone is [phone] and cell phone is [phone]. Patient's primary care physician is Dr. Olmos and preferred pharmacy is [facility]. Patient has not had any difficulty with affording medications. Patient's DPOA-HC are Deng (), Rosi (daughter) and Kurtis (son). Patient has a walker and wheelchair at home. Family reports patient was able to ambulate on her own up until yesterday but she was starting to slow down. Rosi expressed she was able to eat her food the other day but Rosi had to assist her with feeding her. Family is open to receiving information on hospice agencies at home but would like to see how she progresses over the next few days. child care worker provided Medicare.gov list of options for hospice services. Discharge Plan: TBD possibly home with hospice
[2023-07-16] VITALS (10 sets, daily range): BP systolic 111–158; BP diastolic 54–95; PULSE 76–94; TEMP 97.7–99
--- NOTE | 2023-07-16 04:00 | NUR ---
Shift assessment completed- see documentation. Pt is alert but remains nonverbal. She does not respond to verbal commands or questions. She will look at you while you are speaking to her most of the time. She has attempted to speak a couple of times but all she can articulate are mumbles. She reamins NPO at this time as she cannot follow instructions or guidance for a swallow study. She continues to have LR running at 100 ml/hr. There are two exelon patches located on her left shoulder. There was also a different exelon patch on her R shoulder blade. This was removed. She is incontinent. She was cleaned up and will be repositioned q2h. No other visible needs at this time. Will cont to monitor. Fall precautions in place and call light within reach.
[2023-07-16 05:17] LABS: BASO # 0.1 K/mm3 (0.0-0.2); BASO % 0.7 % (0.0-2.0); EOS # 0.3 K/mm3 (0.0-0.7); EOS % 2.5 % (0.0-4.0); GRAN # 6.1 K/mm3 (1.4-6.5); GRAN % 52.9 % (42.2-75.2); HEMOGLOBIN 12.4 g/dl (12.5-16.0); LYMPH # 3.9 K/mm3 (1.2-3.4); LYMPH % 33.3 % (20.0-51.0); MEAN CELL VOLUME 90 fl (80.0-100.0); MEAN CORPUSCULAR HEMOGLOBIN 30 pg (27-31); MEAN CORPUSCULAR HGB CONC 34 g/dl (33.0-37.0); MEAN PLATELET VOLUME 11.9 fl (7.4-10.4); MONO # 1.2 K/mm3 (0.1-0.6); MONO % 10.4 % (1.7-9.3); PLATELET COUNT 202 K/mm3 (130-400); RED BLOOD COUNT 4.09 M/mm3 (4.10-5.30); REDCELL DISTRIBUTION WIDTH-CV 12.4 % (11.5-14.5)
[2023-07-16 05:23] LABS: HEMATOCRIT 36.9 % (37.0-47.0)
[2023-07-16 05:45] LABS: CALCIUM 9.5 mg/dL (8.4-10.2); CREATININE, serum 1.08 mg/dL (0.57-1.11); POTASSIUM 4.2 mmol/L (3.5-4.5)
--- NOTE | 2023-07-16 09:55 | NUR ---
Human Performance Consultant rounds: Human Performance Consultant asked RN Jinny about the NPO on the Patient's door. Patient is an aspiration risk. Jinny stated that there could possibly be a discussion about hospice with the Family soon. Human Performance Consultant prayed for Patient outside of room.
--- NOTE | 2023-07-16 11:00 | NUR ---
Pt assessment completed earlier this am. at bedside during assessment. Daughter arrived a bit later. Pt alert but does not respond to any questions asked by this nurse or follow any commands. IVF infusing to RFA without s/s complications. Incontinent cares provided and purewick placed. Heels floated. Repositioning schedule in place. Fall precautions in place. Remains NPO.
--- NOTE | 2023-07-16 14:26 | NUR ---
PM Ocean Import Representative rounds: Ocean Import Representative visit with Patient's . He is concerned that "they want to put in a feeding tube." wanted them to try food first. talked about the Priests he has known over the years at [facility]; about land his sons are farming; and about moving some calves to a different pasture. Ocean Import Representative prayed for Patient and . INDY Mehta went into room after Ocean Import Representative exited to assisted Patient with eating something that appeared to be applesauce. As Ocean Import Representative left the area, Patient's was offering encouraging words to Patient as she ate.
--- NOTE | 2023-07-16 14:51 | NUR ---
Patient to chair x2 assist back to bed- she sat up for approxiametly 2 hours ago. Bedside dysphagia screen completed per Dr. Ibrahim- patient fed applesauce. Patient swallowed the first couple bites without difficulty but held the next 1-2 bites in her mouth and drool noted on the left side of her mouth, moving down her chin. Dr. Ibrahim notified and patient to remain NPO until speech therapy can evaluate. currently at bedside.
[2023-07-17] VITALS (12 sets, daily range): BP systolic 137–165; BP diastolic 57–111; PULSE 75–89; TEMP 98.3–99.5
[2023-07-17 06:59] LABS: BASO # 0.1 K/mm3 (0.0-0.2); BASO % 0.7 % (0.0-2.0); EOS # 0.3 K/mm3 (0.0-0.7); EOS % 2.5 % (0.0-4.0); GRAN # 6.1 K/mm3 (1.4-6.5); GRAN % 59.4 % (42.2-75.2); HEMOGLOBIN 11.7 g/dl (12.5-16.0); LYMPH # 2.7 K/mm3 (1.2-3.4); MEAN CELL VOLUME 90 fl (80.0-100.0); MEAN CORPUSCULAR HEMOGLOBIN 30 pg (27-31); MEAN CORPUSCULAR HGB CONC 33 g/dl (33.0-37.0); MEAN PLATELET VOLUME 11.8 fl (7.4-10.4); MONO # 1.1 K/mm3 (0.1-0.6); PLATELET COUNT 171 K/mm3 (130-400); RED BLOOD COUNT 3.92 M/mm3 (4.10-5.30); REDCELL DISTRIBUTION WIDTH-CV 12.6 % (11.5-14.5)
[2023-07-17 07:00] LABS: HEMATOCRIT 35.4 % (37.0-47.0)
[2023-07-17 07:15] LABS: CALCIUM 9.2 mg/dL (8.4-10.2); CREATININE, serum 0.88 mg/dL (0.57-1.11); POTASSIUM 3.9 mmol/L (3.5-4.5)
--- NOTE | 2023-07-17 10:00 | NUR ---
PATIENT RESTING IN BED UPON ENTERING ROOM. MORNING MEDICATIONS ADMINISTERED. SHIFT ASSESSMENT COMPLETED. DAUGHTER AT BEDSIDE, SHE IS REQUESTING WE GET RID OF THE PUREWICK AND PUT THE PATIENT IN A BRIEF. PATIENT IS BEING REPOSITIONED Q2 HOURS, HEELS FLOATED. PATIENT IS AWAKE AND ALERT, DOES NOT FOLLOW COMMANDS OR ANSWER QUESTIONS. BED ALARMS IN PLACE, CALL LIGHT WITHIN REACH, WILL CONTINUE TO MONITOR.
--- NOTE | 2023-07-17 11:15 | NUR ---
BEDSIDE SWALLOW EVAL COMPLETED BY THIS RN. PATIENT IS ABLE TO TAKE SIPS OF WATER AND SWALLOW PILLS WHOLE WITH APPLESAUCE. DR. MEEKS UPDATED, WILL START ON A PUREED DIET.
--- NOTE | 2023-07-17 13:47 | NUR ---
SW was on medical floor and family of patient was inquiring about updates and status changes with recommendation of care. RACHEL informed family that last update receieved from Dr. that pallative care was recommended. Family was provided information and education on difference between hospice and pallative care. SW provided validation about their concerns; and offered to contact to further explain the medical recommendation and opporunity to answer further questions. Family confirmed that this would be helpful. RACHEL visited with Dr Ibrahim and she would provide this support and information.
[2023-07-18 01:00] VITALS: BP_SYST 123
[2023-07-18 03:27] VITALS: BP 123/56; PULSE 60; TEMP 99.2
[2023-07-18 03:55] VITALS: BP_SYST 123
[2023-07-18 06:33] LABS: CALCIUM 9.1 mg/dL (8.4-10.2); CREATININE, serum 1.05 mg/dL (0.57-1.11); POTASSIUM 4.8 mmol/L (3.5-4.5)
[2023-07-18 07:47] VITALS: BP 182/63; PULSE 78; TEMP 99
[2023-07-18 09:45] VITALS: BP_SYST 182
--- NOTE | 2023-07-18 10:33 | NUR ---
Met with pt, - Miguel Angel, son Kurtis, RACHEL Mccabe and myself to discuss GOC/Palliative. Daughter Rosi had discussed Palliative Care with Dr. Ibrahim. However today, Miguel Angel and Kurtis wanted to look into Home Health without Palliative. Pt is currently DNR admitted for Right Ear Infection/Acute Encephalopathy. Pt is DNR. Pt is a maxium 2:1 assist to get into chair. Pt is more alert this am and was making effort to communicate with sons- however speech is hard to discern. Estelle provided information for HH agencies as well as Hospice care/SNF. Miguel Angel stated that he felt pt could get along at home with help. Answered all of their questions and Miguel Angel/Kurtis voiced understanding.
[2023-07-18] MEDS ORDERED: OMNICEF 300MG300 MG PO (10:51)
--- NOTE | 2023-07-18 12:45 | NUR ---
Assessment completed this morning. Speech evaluation completed. Pt has been sitting up in chair all morning. More alert and verbal than she was over the weekend. Does speak some but unable to comprehend what it is that she is saying. Discharge instructions reviewed with sons and . All verbalize understanding. INT to RFA and LFA d/c''d with cath tip intact. Incontient cares provided. Pt dressed and 2 assist to w/c. Pt escorted to private vehicle via w/c and discharged home with .
--- NOTE | 2023-07-18 13:01 | NUR ---
general i farmworker and Anabel Perzaa RNproject management advisor, met with family members (Deng and two sons) regarding home hospice or hospice in a facility. After a long discussion, family believes they would like patient to work with home health services first and if that does not work out they would look into hospice care services. general i farmworker provided a Medicare.gov list for home health, hospice and nursing homes in the [facility] for family to review. general i farmworker was notified patient and family would like to utilize [facility] services out of [place]. Patient has utilized these services in the past and would like to use them again. Patient's family asked about swing bed or SNF services, patient does not currently meet the requirements for those services but she could go via private pay to a nursing facility and receive Medicare B therapies. Patient's family expressed at this time they would like patient to receive home health services. general i farmworker expressed if they wanted to utilize hospice services at some point in the future, they could contact the primary care physician to send a referral. general i farmworker contacted [facility] and faxed referral for home health services. Discharge Plan: Home with Home Health
== END 2023-07-18 12:45 | disposition home or self-care (01) | DRG 153 ==
LOC: COL.ER 15:21 → MEDICAL 18:37
PROVIDERS: Emergency Medicine; ADMIT Internal Medicine
DX: H70.91 Unspecified mastoiditis, right ear (principal); H66.91 Otitis media, unspecified, right ear; F03.90 Unspecified dementia, unspecified severity, without behavioral disturbance, psychotic disturbance, mood disturbance, and anxiety; G20.A1 Parkinson's disease without dyskinesia, without mention of fluctuations; F02.80 Dementia in other diseases classified elsewhere, unspecified severity, without behavioral disturbance, psychotic disturbance, mood disturbance, and anxiety; I12.9 Hypertensive chronic kidney disease with stage 1 through stage 4 chronic kidney disease, or unspecified chronic kidney disease; N18.30 Chronic kidney disease, stage 3 unspecified; Z86.73 Personal history of transient ischemic attack (TIA), and cerebral infarction without residual deficits; Z66 Do not resuscitate
CPT/HCPCS: G0378; J0696; J1644; J1815; J7042; J7120